=== PATIENT | male | born 1955 | race Caucasian/White ===

== ENCOUNTER → 2018-08-25 | Outpatient (CLI) | payer OTHER ==
[2018-08-25 13:47] LABS: CREATININE 1.5 mg/dL (0.7-1.3)
== END ==
LOC: CAT 11:52
PROVIDERS: Nuclear Medicine Nuclear Cardiology
DX: I71.4 Abdominal aortic aneurysm, without rupture (principal); I70.8 Atherosclerosis of other arteries

== ENCOUNTER 2019-03-04 05:23 | Day surgery (SDC) | payer OTHER ==
[~2019-03-04] VITALS: Ht 182.9 cm; Wt 107.5 kg
--- NOTE | ~2019-03-04 | O ---
[facility] [place] [address] OPERATIVE REPORT Name: IVAN SANTOS Room #: 150-13 [facility] M.R.#: [id number] Admission: 03/04/19 ������������������ Attend Phys: Ricky Newman MD Discharge: ������������������ Date of : 51 Report #: [id number] THIS REPORT FOR: //name// CC: Mele Newman DATE OF SERVICE: 03/04/2019 PREOPERATIVE DIAGNOSES: Right total knee arthroplasty, arthrofibrosis. POSTOPERATIVE DIAGNOSES: Right total knee arthroplasty, arthrofibrosis. PROCEDURE: Right knee arthroscopy with extensive debridement of adhesions, right knee. SURGEON: Ricky Newman MD ANESTHESIA: LMA. TOURNIQUET TIME: 20 minutes. COMPLICATIONS: None. SPECIMENS: None. CONDITION UPON LEAVING THE OPERATING ROOM: Stable. INDICATIONS FOR PROCEDURE: The patient is a 63-year-old gentleman who is several years out from a right total knee arthroplasty performed by another surgeon. He has had continued pain and popping in his knee. We worked him up for infection and loosening and these were negative. After discussion with him, he elected for right knee arthroscopy with debridement and lysis of adhesions. DESCRIPTION OF PROCEDURE: Risks, benefits, alternatives, complications were discussed in detail with the patient including but not limited to risk of anesthesia, risk of damage to nerves, arteries, blood vessels, risk for infection, bleeding, risk for continued knee pain, need for reoperation. Informed consent was obtained from the patient. Right knee was appropriately marked in the preoperative holding area. IV Ancef was given for preoperative antibiotics. He was brought to the operating room and placed in supine position on operating room table. LMA anesthesia was induced without complication. Tourniquet was placed on the right thigh. Right lower extremity was prepped and draped in normal sterile fashion. Timeout was performed properly identifying the patient and procedure as well as instrumentation. All in the operating room were in agreement. Right lower extremity was exsanguinated, tourniquet was inflated. Tourniquet time was 20 minutes. Standard anterolateral portal was [address] [address] OPERATIVE REPORT Name: IVAN SANTOS Room #: 150-13 [facility] M.R.#: [id number] Admission: 03/04/19 ������������������ Attend Phys: Ricky Newman MD Discharge: ������������������ Date of : 51 Report #: [id number] established with an 11 blade through the skin. Arthroscope was introduced into the patellofemoral compartment, diagnostic arthroscopy was undertaken. Patellofemoral compartment was visualized and found to have thick bands of scar tissue along the medial and lateral patella. Medial gutter was visualized and found to have a hypertrophic scar tissue along the area of the previous medial meniscus. Medial portal was established under arthroscopic visualization. An arthroscopic shaver was used to debride the medial scar tissue in the medial compartment. Notch was visualized and found to have a posterior stabilized component in stable position. Lateral compartment was visualized and found to have a hypertrophic scar tissue along the lateral gutter, extending into the lateral compartment. This was debrided with arthroscopic shaver. Scope was then placed back in the patellofemoral compartment and accessory superolateral portal was established in order to debride the medial and lateral thickened adhesions next to the patella. This was done with arthroscopic shaver. After this, all fluid was allowed to drain from the knee, and the knee was injected with 30 mL of 0.5% Marcaine. Incision was closed with 3-0 nylon. Soft dressing of Adaptic, 4 x 4, Webril, Glen wrap were applied. The patient tolerated this procedure well and went to the recovery room under the care of Anesthesia postoperatively. ��������������������������������������������� ���������������������������������������� By: ��������������������������������������������� 1041 [id number] Ricky Newman MD /nt
[~2019-03-04 05:23] MED LIST: AZELASTINE137 MCG/0. NASAL; FISH OIL PO; FLUOXETINE HCL40 MG PO; LISINOPRIL-HCT1 EAC2 PO; MOBIC15 MG PO; PLAVIX 75 MG TA75 M1 PO; PROTONIX40 M1 PO; TRAZODONE HCL100 MG PO; XYZAL5 MG PO; ZOCOR80 MG PO
[2019-03-04 08:28] LABS: CALCIUM 9.6 mg/dL (8.5-10.1); CREATININE 1.7 mg/dL (0.7-1.3); POTASSIUM 4.1 mmol/L (3.5-5.1)
[2019-03-04 08:34] LABS: ALBUMIN 3.7 g/dL (3.4-5.0); TOTAL BILIRUBIN 0.3 mg/dL (<0.1-1.0); TOTAL PROTEIN 7.3 g/dL (6.4-8.2)
[2019-03-04 09:18] VITALS: BP 141/82
[2019-03-04] MEDS ORDERED: NORCO 5-325 TA1 EACH PO (10:35)
[2019-03-04 11:11] VITALS: BP 141/82
--- NOTE | 2019-03-05 12:03 | EKG ---
[place] [address] [facility] [place] [address] ELECTROCARDIOGRAM REPORT Name: IVAN SANTOS Room #: DEP [facility]..#: [id number] ������������������ Admission: 03/04/19 ������������������ Attend Phys: Ricky Newman MD Discharge: 03/04/19 ������������������ Date of : 51 Report #: [id number] ����������������������������������������������������������������� [id number] THIS REPORT FOR: //name// [facility] Test Date: 2019-03-04 Test Time: 08:11:44 Pat Name: IVAN SANTOS Department: Room: 150 13 Gender: M [employer]: greg : 1955 Requested By: Ricky Newman Order Number: [id number] MD: Ravi Bermudez Measurements Intervals [place] Rate: 54 P: 25 MN: 189 QRS: 5 QRSD: 100 T: 66 QT: 455 QTc: 432 Interpretive Statements Sinus bradycardia Nonspecific ST segment abnormality No previous ECG available for comparison Electronically Signed On 03-05-2019 12:03:24 CDT by Ravi Bermudez [email or web address] ��������������������������������������������� <ELECTRONICALLY SIGNED> ���������������������������������������� By: Ravi Bermudez MD, [facility] ��������������������������������������������� 03/05/19 1203 0811 0 Ravi Bermudez MD, [facility] /EPI
== END 2019-03-04 11:43 | disposition home or self-care (01) ==
LOC: OR 05:23 → TBA 05:23 → OR 09:53
PROVIDERS: Orthopaedic Surgery
DX: M24.661 Ankylosis, right knee (principal); Z96.651 Presence of right artificial knee joint; I10 Essential (primary) hypertension; E78.5 Hyperlipidemia, unspecified; G47.33 Obstructive sleep apnea (adult) (pediatric); K21.9 Gastro-esophageal reflux disease without esophagitis; F17.210 Nicotine dependence, cigarettes, uncomplicated; Z79.899 Other long term (current) drug therapy; Z87.442 Personal history of urinary calculi; Z86.73 Personal history of transient ischemic attack (TIA), and cerebral infarction without residual deficits; Z98.890 Other specified postprocedural states
CPT/HCPCS: 50010; 50101; 50405; 51038; 54170; 56526; 57103; 57180; 62110; 62900; 64037; 70005

== ENCOUNTER → 2020-09-29 | Outpatient (CLI) | payer OTHER ==
[~2020-09-29] MED LIST changes: +NORCO 5-325 TA1 EACH PO
== END ==
LOC: SJCVC 15:02
PROVIDERS: ATTEND Internal Medicine Cardiovascular Disease
DX: R06.00 Dyspnea, unspecified (principal); E78.00 Pure hypercholesterolemia, unspecified; I10 Essential (primary) hypertension; I73.9 Peripheral vascular disease, unspecified; F17.200 Nicotine dependence, unspecified, uncomplicated; Z92.0 Personal history of contraception; Z79.899 Other long term (current) drug therapy

== ENCOUNTER → 2020-10-04 | Outpatient (CLI) | payer OTHER ==
[~2020-10-04] MED LIST changes: +CRESTOR10 MG PO; +FISH OIL 1,0001 EAC9 PO; +ROBAXIN 750 MG750 MG PO
[2020-10-04 15:01] LABS: CREATININE 1.5 mg/dL (0.7-1.3)
== END ==
LOC: SJCVCIMAG 09:01 → LAB 09:33
PROVIDERS: ATTEND Nuclear Medicine Nuclear Cardiology
DX: I65.23 Occlusion and stenosis of bilateral carotid arteries (principal); I25.10 Atherosclerotic heart disease of native coronary artery without angina pectoris; I71.4 Abdominal aortic aneurysm, without rupture; R00.1 Bradycardia, unspecified; I73.9 Peripheral vascular disease, unspecified; E78.00 Pure hypercholesterolemia, unspecified; I12.9 Hypertensive chronic kidney disease with stage 1 through stage 4 chronic kidney disease, or unspecified chronic kidney disease; N18.9 Chronic kidney disease, unspecified; I77.9 Disorder of arteries and arterioles, unspecified; F17.200 Nicotine dependence, unspecified, uncomplicated; Z79.899 Other long term (current) drug therapy

== ENCOUNTER → 2020-10-11 | Outpatient (CLI) | payer OTHER ==
[~2020-10-11] VITALS: Ht 182.9 cm; Wt 102.1 kg
[2020-10-11 08:06] VITALS: BP 132/76
[2020-10-11 08:53] LABS: BASOPHILS 0.3 % (0.0-2.0); EOSINOPHILS 1.1 % (0.0-3.0); HEMATOCRIT 38.6 % (42.0-52.0); HEMOGLOBIN 13.3 gm/dL (14.0-18.0); LYMPHOCYTES 23.7 % (24.0-44.0); MCH 32.8 pg (26.0-34.0); MCHC 34.4 g/dL (28.0-37.0); MCV 95.2 fL (80.0-100.0); MONOCYTES 6.5 % (1.0-8.0); PLATELET COUNT 198 thou/uL (150-400); POLYS 68.4 % (36.0-66.0); RBC 4.06 mil/uL (4.50-6.00); RDW 13.4 % (10.5-14.5); WBC 8.8 thou/uL (4.0-11.0)
[2020-10-11 09:07] LABS: ALBUMIN 3.4 g/dL (3.4-5.0); CALCIUM 9.3 mg/dL (8.5-10.1); CREATININE 1.7 mg/dL (0.7-1.3); TOTAL BILIRUBIN 0.3 mg/dL (0.2-1.0)
[2020-10-11 09:15] LABS: APTT 23.4 Seconds (24.5-32.8); PROTIME 9.9 Seconds (9.3-11.4)
[2020-10-11 14:33] LABS: URINE BILIRUBIN NEGATIVE (Negative); URINE BLOOD NEGATIVE (Negative); URINE CLARITY CLEAR; URINE COLOR YELLOW; URINE GLUCOSE-RANDOM* NEGATIVE (Negative); URINE KETONES NEGATIVE (Negative); URINE LEUKOCYTES-REFLEX NEGATIVE (Negative); URINE NITRITE-REFLEX NEGATIVE (Negative); URINE PROTEIN (DIPSTICK) TRACE (Negative); URINE UROBILINOGEN 0.2 E.U./dl (0.2-1.0)
--- NOTE | 2020-10-11 15:35 | EKG ---
[place] [address] [employer] [employer] [address] ELECTROCARDIOGRAM REPORT Name: IVAN SANTOS Room #: REG CLI Edwin.#: [id number] Admission: 10/11/20 Attend Phys: Santiago Costello MD Discharge: Date of : 51 Report #: [id number] [facility] Test Date: 2020-10-11 Test Time: 08:49:21 Pat Name: IVAN SANTOS Department: Room: Gender: M Freelance Copywriter: VALENTIN : 1955 Requested By: Zay Santos Order Number: [id number] MD: Alex Agrawal Measurements Intervals [place] Rate: 61 P: -7 VA: 165 QRS: -14 QRSD: 97 T: 71 QT: 444 QTc: 448 Interpretive Statements Sinus rhythm Compared to ECG 03/04/2019 08:11:44 Sinus bradycardia no longer present ST (T wave) deviation no longer present Electronically Signed On 10-11-2020 15:35:33 [employer] by Alex Agrawal [email or web address] <ELECTRONICALLY SIGNED> By: Alex Agrawal MD, [facility] 10/11/20 1535 0849 0849 Alex Agrawal MD, FACRadha /EPI
--- NOTE | 2020-10-14 12:43 | HC ---
[facility] [place] [address] CONSULTATION Name: IVAN SANTOS Room #: REG JOSE GUADALUPE Morgan.#: [id number] Admission: 10/11/20 Attend Phys: Santiago Costello MD Discharge: Date of : 51 Report #: [id number] THIS REPORT FOR: cc: Mele Quiroz James L. DO Forman, John M. MD ~ DATE OF SERVICE: 10/11/2020 REASON FOR CONSULTATION: Abdominal aortic aneurysm. HISTORY OF PRESENT ILLNESS: We were asked by Dr. Santiago Costello to see the patient. The patient is a 65-year-old being followed for an infrarenal abdominal aortic aneurysm. CAT scan shows a 4.7 cm aneurysm, but the patient also has aortoiliac occlusive disease with claudication. Arteriography was done today that shows a proximal iliac artery stenoses and left hypogastric occlusion. PAST MEDICAL HISTORY: Significant for hypertension, hypercholesterolemia, arterial occlusive disease. The patient also states he has had a transient ischemic attack and takes Plavix chronically. MEDICATIONS AT HOME: Includes Plavix, Prozac, lisinopril, hydrochlorothiazide, Robaxin, Protonix, Crestor, trazodone. ALLERGIES: The patient states he has anaphylaxis with PENICILLIN. The patient does say he has had Keflex without difficulty. The patient states that ATORVASTATIN causes restlessness with polyuria and shakes. SOCIAL HISTORY: The patient is and lives outside of [place], [place] and is a smoker, who intends to continue. REVIEW OF SYSTEMS: GENERAL: No change in weight. EYES: No change in vision. ENT: No hearing changes. No sinus problems. RESPIRATORY: Denies shortness of breath, cough. CARDIAC: Denies chest pain or palpitations. GASTROINTESTINAL: Denies nausea, vomiting, blood. GENITOURINARY: Denies urgency, frequency, blood. MUSCULOSKELETAL: Denies new bone or joint pain. SKIN: Denies rash or infection. ENDOCRINE: Denies tremor or goiter. NEUROLOGIC: Denies new motor or sensory symptoms. As mentioned, the patient had a remote transient ischemic attack. HEMATOLOGIC: Denies bruisability or bleeding. [facility] [address] [place] [address] CONSULTATION Name: IVAN SANTOS Room #: REG CLI [facility].#: [id number] Admission: 10/11/20 Attend Phys: Santiago Costello MD Discharge: Date of : 51 Report #: [id number] PHYSICAL EXAMINATION: CONSTITUTIONAL: The patient is lying in the gurney post-catheterization. He appears to be comfortable without distress. VITAL SIGNS: Blood pressure 150/90, heart rate 60. HEENT: No scleral icterus, no arcus. NECK: No mass. I hear no bruit. CHEST: Clear to auscultation. HEART: Rhythm regular, no murmur. Somewhat distant heart tones. ABDOMEN: Soft, no mass. EXTREMITIES: No clubbing, cyanosis or edema, 1+ femoral and popliteal pulses bilaterally. MUSCULOSKELETAL: No bone or joint asymmetry or deformity. We note right total knee incision. NEUROLOGIC: No obvious motor or sensory dysfunction. PSYCHIATRIC: Shows insight into problem and answers questions appropriately. I reviewed the findings of the CT scan on the arteriogram with the patient and discussed options for treatment, stent graft implant with dilatation of the iliac lesions as anticipated. Risks and details were discussed. Options and alternatives as mentioned were reviewed. The patient understands all of this and we will try to arrange elective surgery. Thank you for the consult. <ELECTRONICALLY SIGNED> By: Zay Santos MD 10/14/20 1243 1352 1907 Zay Santos MD /nt
== END | disposition home or self-care (01) ==
LOC: CATH 07:38
PROVIDERS: Surgery Vascular Surgery; ATTEND Nuclear Medicine Nuclear Cardiology
DX: I71.4 Abdominal aortic aneurysm, without rupture (principal); I70.1 Atherosclerosis of renal artery; E78.00 Pure hypercholesterolemia, unspecified; I10 Essential (primary) hypertension; Z98.890 Other specified postprocedural states; Z86.73 Personal history of transient ischemic attack (TIA), and cerebral infarction without residual deficits; Z79.899 Other long term (current) drug therapy; Z88.0 Allergy status to penicillin; Z88.8 Allergy status to other drugs, medicaments and biological substances; Z79.01 Long term (current) use of anticoagulants; Z20.828 Contact with and (suspected) exposure to other viral communicable diseases

== ENCOUNTER 2020-11-03 06:09 | Inpatient (IN) | payer OTHER ==
[2020-11-03] VITALS (35 sets, daily range): BP systolic 106–141; BP diastolic 40–68
[~2020-11-03] VITALS: Ht 182.9 cm; Wt 102.1 kg
[2020-11-03 14:52] LABS: CALCIUM 9.2 mg/dL (8.5-10.1); CREATININE 1.5 mg/dL (0.7-1.3)
--- NOTE | 2020-11-03 16:25 | NUR ---
1235 PT TO ICU FROM RECOVERY ROOM. CARDENE GTT INFUSING. RIGHT RAD HEBERT WITH GOOD WAVE FORM. PT AWAKE, ALERT, DENIES PAIN. 1245 PT'S AT BEDSIDE AND UPDATED. PT TOLERATING PO WELL. DENIES NAUSEA OR VOMITING. 1500 LABS SENT BMP ORDERED. 1600 DR UGARTE AT BEDSIDE AND UPDATED. PT RESTING WITH HOME CPAP IN PLACE. PT AT BEDSIDE. REMAINS ON CARDENE GTT.
[2020-11-03 16:57] LABS: CALCIUM 8.7 mg/dL (8.5-10.1); CREATININE 1.6 mg/dL (0.7-1.3)
[2020-11-04 01:38] VITALS: BP 119/59
[2020-11-04 02:02] VITALS: BP 115/59
[2020-11-04 04:00] VITALS: BP 124/61
[2020-11-04 06:00] VITALS: BP 121/63
[2020-11-04 06:11] LABS: HEMATOCRIT 32.5 % (42.0-52.0); HEMOGLOBIN 10.9 gm/dL (14.0-18.0); MCH 32.3 pg (26.0-34.0); MCHC 33.5 g/dL (28.0-37.0); MCV 96.3 fL (80.0-100.0); RBC 3.37 mil/uL (4.50-6.00); RDW 13.2 % (10.5-14.5); WBC 12.3 thou/uL (4.0-11.0)
[2020-11-04 06:19] LABS: CALCIUM 8.3 mg/dL (8.5-10.1); CREATININE 1.4 mg/dL (0.7-1.3); POTASSIUM 3.8 mmol/L (3.5-5.1)
--- NOTE | 2020-11-04 07:37 | NUR ---
Pt progressing toward discharge goals. Pain well controlled with oral medication. Bilateral groin sites dressings clean, dry, intact, no hematoma or bleeding. Urine output 1000 cc for shift. Taking po without nausea or vomitting. Able to titrate Cardene down from 10 mg/hr at beginning of shift to 3 mg/hr by midnight. Pt slept with home CPAP unit in place, no O2 required, sat remained > 94%. Monitor sinus jorgito, sinus rhythm rates 56-64. Pt anxious to go home today.
[2020-11-04 10:54] VITALS: BP 127/60
--- NOTE | 2020-11-12 09:20 | O ---
[facility] [place] [address] OPERATIVE REPORT Name: IVAN SANTOS Room #: 248-P [facility] M.R.#: [id number] Admission: 11/03/20 Attend Phys: Zay Santos MD Discharge: 11/04/20 Date of : 51 Report #: [id number] THIS REPORT FOR: cc: Mele Quiroz James L. DO Forman,Zay Loya MD ~ DATE OF SERVICE: 11/03/2020 PREOPERATIVE DIAGNOSES: Abdominal aortic aneurysm and peripheral arterial occlusive disease. POSTOPERATIVE DIAGNOSES: Abdominal aortic aneurysm and peripheral arterial occlusive disease. OPERATION: Stent graft implant for abdominal aortic aneurysm with intraoperative arteriograms and angioplasty. SURGEON: Dr. Zay Santos and Dr. Santiago Costello. LEAD FRONT END DEVELOPER: SOUMYA Sun ANESTHESIA: General. INDICATIONS: The patient is a 65-year-old with a nearly 5 cm abdominal aortic aneurysm and peripheral arterial occlusive disease. The patient has proximal common iliac stenoses. FINDINGS AND TECHNIQUE: After general anesthesia was established, incisions were made in both groins to expose and control the common femoral artery. 10,000 units of heparin were given. On each side, the common femoral was entered with an Amplatz needle and using Seldinger technique, a guidewire and 6-Macedonian introduced introducers were placed. Through the introducer, long J wires were placed with the exchange catheter was over them and these were exchanged for Dimitrios wires. Over the Dimitrios wires on each side, the larger introducer was placed through a femoral cutdown on the right side, the 12-Macedonian catheter was placed and on the left side, the 18-Macedonian catheter was placed. Through the 18-Macedonian catheter on the left, 28.5 x 14.5 x 18 main body was placed through the right side, a visceral catheter was placed to enter the right renal artery and this was followed by a Glidewire, so that the catheter could be further introduced and through this, a Storq was placed so that the visceral catheter could be removed and a guiding catheter could be inserted into the [facility] [address] [place] [address] OPERATIVE REPORT Name: TOMIVAN Room #: 248-P [facility] M.R.#: [id number] Admission: 11/03/20 Attend Phys: Zay Santos MD Discharge: 11/04/20 Date of : 51 Report #: [id number] renal orifice. It should be mentioned that contrast was given sparingly because of a creatinine of 1.7. The main body was deployed in good position just below the renal arteries and its position ascertained with contrast through the guiding catheter. The main body was partially deployed, so that the contralateral gate could be opened and this was entered with the Storq catheter. The guiding catheter was replaced with a stiff wire and then a pigtail catheter to be confident that the contralateral gate had been cannulated properly. Spin technique was employed. A retrograde right iliac shot was taken to measure the distance with the marked pigtail from the contralateral gate to the right hypogastric. With this measurement, a 14.5 x 14 cm limb was selected. This was placed through the right, 12-Macedonian introducer catheter and deployed. The remainder of the main body was deployed down into the left iliac. With all of the devices deployed, then the G50 catheter was placed through the right side to fully deploy the main body at the proximal landing zone and sequential dilatations were made through this catheter down through the contralateral gate and into the limb itself. It should be mentioned that prior to any introduction of the stent graft devices, angioplasty was done of the proximal common iliac arteries using a 10 x 4 balloons on each side to allow the introduction of the devices. With the devices in place, repeat angioplasty was done with subcutaneous balloon technique on each side using the 10 mm balloons to fully dilate and the preexisting lesions in the proximal common iliacs. When all of the angioplasties had been completed, then a final arteriogram was taken that showed good position of the graft and no evidence of endoleak. With this information, the dilators were replaced into the introducer sheaths and then the sheaths were removed and then the guidewires were removed with no change in hemodynamics on each side, the common femoral cutdown was repaired with interrupted Prolene. Flow was reestablished and protamine was given to reverse the heparin. At the end of the case, strong distal pulses were palpable. [facility] [address] [place] [address] OPERATIVE REPORT Name: IVAN SANTOS Room #: 248-P [facility] M.R.#: [id number] Admission: 11/03/20 Attend Phys: Zay Santos MD Discharge: 11/04/20 Date of : 51 Report #: [id number] When hemostasis was satisfactory, wounds were closed in layers and the patient was taken to the recovery area in good condition. All counts reported as correct. <ELECTRONICALLY SIGNED> By: Zay Santos MD 11/12/20 0920 1055 1120 Zay Santos MD /nt
== END 2020-11-04 11:30 | disposition home or self-care (01) | DRG 268 ==
LOC: TBA 06:09 → PRE 09:46 → ICU 13:16
PROVIDERS: Physician Assistant; ADMIT Surgery Vascular Surgery; ATTEND Surgery Vascular Surgery
PROC: 047K3ZZ Dilation of Right Femoral Artery, Percutaneous Approach (ICD-10-PCS; principal; 2020-11-03)
PROC: 4A133B1 Monitoring of Arterial Pressure, Peripheral, Percutaneous Approach (ICD-10-PCS; principal; 2020-11-03)
PROC: 047C3ZZ Dilation of Right Common Iliac Artery, Percutaneous Approach (ICD-10-PCS; principal; 2020-11-03)
PROC: 03HY32Z Insertion of Monitoring Device into Upper Artery, Percutaneous Approach (ICD-10-PCS; principal; 2020-11-03)
PROC: 5A09357 Assistance with Respiratory Ventilation, Less than 24 Consecutive Hours, Continuous Positive Airway Pressure (ICD-10-PCS; principal; 2020-11-03)
PROC: B4181ZZ Fluoroscopy of Bilateral Renal Arteries using Low Osmolar Contrast (ICD-10-PCS; principal; 2020-11-03)
PROC: 047D3ZZ Dilation of Left Common Iliac Artery, Percutaneous Approach (ICD-10-PCS; principal; 2020-11-03)
PROC: 04V03DZ Restriction of Abdominal Aorta with Intraluminal Device, Percutaneous Approach (ICD-10-PCS; principal; 2020-11-03)
PROC: B4101ZZ Fluoroscopy of Abdominal Aorta using Low Osmolar Contrast (ICD-10-PCS; principal; 2020-11-03)
PROC: 4A133J1 Monitoring of Arterial Pulse, Peripheral, Percutaneous Approach (ICD-10-PCS; principal; 2020-11-03)
PROC: 5A09357 Assistance with Respiratory Ventilation, Less than 24 Consecutive Hours, Continuous Positive Airway Pressure (ICD-10-PCS; 2020-11-04)
DX: I71.4 Abdominal aortic aneurysm, without rupture (principal); R65.11 Systemic inflammatory response syndrome (SIRS) of non-infectious origin with acute organ dysfunction; E78.5 Hyperlipidemia, unspecified; I73.9 Peripheral vascular disease, unspecified; D64.9 Anemia, unspecified; G47.33 Obstructive sleep apnea (adult) (pediatric); I12.9 Hypertensive chronic kidney disease with stage 1 through stage 4 chronic kidney disease, or unspecified chronic kidney disease; N18.9 Chronic kidney disease, unspecified; G89.29 Other chronic pain; M54.9 Dorsalgia, unspecified; I77.89 Other specified disorders of arteries and arterioles; Z88.0 Allergy status to penicillin; Z88.8 Allergy status to other drugs, medicaments and biological substances; Z71.6 Tobacco abuse counseling; Z72.0 Tobacco use
CPT/HCPCS: 10078; 47375; 50010; 50101; 50386; 50455; 52287; 54118; 56524; 56526; 56531; 56668; 56760; 57093; 57853; 57854; 57857; 58467; 58468; 62110; 62900; 65020; 65040; 70005

== ENCOUNTER → 2020-12-26 | Outpatient (CLI) | payer OTHER ==
[2020-12-26 08:40] LABS: CREATININE 1.7 mg/dL (0.7-1.3)
== END ==
LOC: CAT 12-05 12:58 → LAB 07:39
PROVIDERS: ATTEND Nuclear Medicine Nuclear Cardiology
DX: Z01.812 Encounter for preprocedural laboratory examination (principal); I70.1 Atherosclerosis of renal artery; M47.815 Spondylosis without myelopathy or radiculopathy, thoracolumbar region; I71.4 Abdominal aortic aneurysm, without rupture; Z95.828 Presence of other vascular implants and grafts

== ENCOUNTER → 2021-05-18 | Outpatient (CLI) | payer OTHER | LOC: SJCVC 10:12 | PROVIDERS: ATTEND Internal Medicine Cardiovascular Disease | DX: R25.1 Tremor, unspecified (principal); I10 Essential (primary) hypertension; E78.00 Pure hypercholesterolemia, unspecified; G45.9 Transient cerebral ischemic attack, unspecified; I73.9 Peripheral vascular disease, unspecified; I12.9 Hypertensive chronic kidney disease with stage 1 through stage 4 chronic kidney disease, or unspecified chronic kidney disease; N18.9 Chronic kidney disease, unspecified; E78.5 Hyperlipidemia, unspecified; G47.30 Sleep apnea, unspecified; F17.200 Nicotine dependence, unspecified, uncomplicated; Z79.899 Other long term (current) drug therapy; Z86.73 Personal history of transient ischemic attack (TIA), and cerebral infarction without residual deficits ==

== ENCOUNTER → 2021-06-15 | Outpatient (CLI) | payer OTHER | LOC: SJCVCIMAG 07:32 | PROVIDERS: ATTEND Internal Medicine Cardiovascular Disease | DX: R00.0 Tachycardia, unspecified (principal); R25.1 Tremor, unspecified; E78.00 Pure hypercholesterolemia, unspecified; R06.09 Other forms of dyspnea; I12.9 Hypertensive chronic kidney disease with stage 1 through stage 4 chronic kidney disease, or unspecified chronic kidney disease; N18.9 Chronic kidney disease, unspecified; F17.200 Nicotine dependence, unspecified, uncomplicated; Z79.899 Other long term (current) drug therapy; Z86.73 Personal history of transient ischemic attack (TIA), and cerebral infarction without residual deficits; Z88.0 Allergy status to penicillin; Z88.1 Allergy status to other antibiotic agents ==

== ENCOUNTER → 2021-09-07 | Outpatient (CLI) | payer OTHER | LOC: SJCVC 12:49 | PROVIDERS: ATTEND Internal Medicine Cardiovascular Disease | DX: I10 Essential (primary) hypertension (principal); E78.00 Pure hypercholesterolemia, unspecified; R53.83 Other fatigue; I12.9 Hypertensive chronic kidney disease with stage 1 through stage 4 chronic kidney disease, or unspecified chronic kidney disease; N18.9 Chronic kidney disease, unspecified; E78.5 Hyperlipidemia, unspecified; G47.30 Sleep apnea, unspecified; F17.200 Nicotine dependence, unspecified, uncomplicated; Z88.0 Allergy status to penicillin; Z88.8 Allergy status to other drugs, medicaments and biological substances; Z79.899 Other long term (current) drug therapy ==